=== PATIENT | female | born 1995 | race African-American/Black ===

== ENCOUNTER 2021-03-08 23:22 | Inpatient (IN) | payer MEDICAID ==
[~2021-03-08] VITALS: Ht 157.5 cm; Wt 73.2 kg
[2021-03-08 23:40] VITALS: BP 122/83; PULSE 98; TEMP 98.4
--- NOTE | 2021-03-08 23:40 | NUR ---
2340 G2L1 38.3 WEEK GEST TO LR4 WITH C/O CONTRACTIONS. ADM ASSESSMENT DONE. SVE 4-5/70/-3 VERY POSTERIOR CERVIX. BOW INTACT. EFM WITH 140'S BASELINE AND GOOD VARIABILITY NOTED. COMFORTABLE WITH CONTRACTIONS.
[2021-03-09] VITALS (42 sets, daily range): BP systolic 70–135; BP diastolic 36–85; PULSE 84–126; TEMP 98.1–99.3
--- NOTE | 2021-03-09 00:45 | NUR ---
0045 SVE /-3 WITH BALLOTABLE PRESENTING PART AND VERY POSTERIOR CERVIX. STATES CONTRACTIONS ARE NOT ANY STRONGER. DR SHETTY NOTIFIED AND ORDER TO ADMIT GIVEN.
[2021-03-09] MEDS ORDERED: PRENATAL TABLET PO (00:49)
[2021-03-09] MEDS ORDERED: NATURAL IRON65 MG PO (00:50)
[2021-03-09 01:53] LABS: MEAN CELL VOLUME 81 fl (80.0-100.0); MEAN CORPUSCULAR HGB CONC 31 g/dl (33.0-37.0); MEAN PLATELET VOLUME 9.9 fl (7.4-10.4); PLATELET COUNT 288 K/mm3 (130-400); RED BLOOD COUNT 3.95 M/mm3 (4.10-5.30); REDCELL DISTRIBUTION WIDTH-CV 14.5 % (11.5-14.5)
[2021-03-09 01:55] LABS: HEMATOCRIT 31.8 % (37.0-47.0); HEMOGLOBIN 9.9 g/dl (12.5-16.0); MEAN CORPUSCULAR HEMOGLOBIN 25 pg (27.0-31.0)
--- NOTE | 2021-03-09 02:00 | NUR ---
0200 SITTING ON SIDE OF BED FOR EPIDURAL PLACEMENT. SEE ANESTHESIA RECORDS FOR MORE INFORMATION.
[2021-03-09 02:13] LABS: EOSINOPHIL 2 % (0-4); HYPOCHROMIA 2+; LYMPHOCYTE 24 % (20.0-51.0); MYELOCYTE 1 % (0-0); NEUTROPHILS 68 % (42.0-75.2); PLATELET ESTIMATE NORMAL (NORMAL)
--- NOTE | 2021-03-09 03:00 | NUR ---
0300 ZHAO CATH INSERTED. POSITION CHANGE TO LL. TIRED AND WANTING TO SLEEP
--- NOTE | 2021-03-09 03:30 | NUR ---
0330 B/P 70/37 EPHEDRINE 10MG IV GIVEN WITH B/P INCREASE TO 101/50. PT STATES IS FEELING OUT OF BREATH AND WEAK.
--- NOTE | 2021-03-09 03:38 | NUR ---
0338 B/P 66/49. FEELING WEAK AND BREATHLESS. EPHEDRINE 10MG IV GIVEN. B/P INCREASE TO 107/58
--- NOTE | 2021-03-09 04:15 | NUR ---
2993 - 7590 BABY BECOMES VERY ACTIVE AND UNABLE TO SOCIAL SCIENCE ANALYST CONTINUOUS MONITORING DURING THIS TIME. POSITION CHANGED FROM LEFT LATERAL TO RIGHT LATERAL SEVERAL TIMES. SVE
--- NOTE | 2021-03-09 09:13 | NUR ---
0913- Patient reports increased rectal pressure and urge. SVE 9-10. Patient repositioned high fowlers, wedge left. Dr. Mcdonald updated. See physician notification. 33- SVE C/0. Dr. Mcdonald requested for delivery. See physician notification. Pitocin off. 39- Dr. Mcdonald at bedside for delivery. Patient assisted into footplates and instructed on pushing with ctx. 41- Patient begins to push with ctx with Dr. Mcdonald at bedside. Moves vertex well. 47- Spontaneous vaginal delivery of viable female . To mother's chest where dried and stimulated by nursery RN. Nares and mouth bulb suctioned by Dr. Mcdonald. Cord clamped x2 and cut by father of . Care of assumed by Carina Bojorquez RN. Cord blood and cord gases collected. 49- Spontaneous and intact delivery of placenta. Fundus boggy, but firms with massage. Moderate amout of lochia noted. Dr. Mcdonald at bedside and observes. Right periurethreal and vaginal sidewall laceration repaired by Dr. Mcdonald. Rea care provided, pads changed, and ice pack to perineum. Plan of care and safety precautions reviewed with patient and spouse who verbalize undersanding. See physician dictation, anesthesia record, and nurses notes.
--- NOTE | 2021-03-09 11:30 | NUR ---
Patient verbalizes need to void. Assisted to edge of bed. Denies any lightheadedness or dizziness. Abulatory to bathroom and voids. Rea care provied, clean gown on, and ice pack to perineum. To room 214 via wheel chair. Oriented to room and plan of care.
[2021-03-09] MEDS ORDERED: MOTRIN 800800 MG/TAB PO (20:51)
[2021-03-10 00:30] VITALS: BP 111/62; PULSE 65; TEMP 98.9
[2021-03-10 07:21] VITALS: BP 110/60; PULSE 76; TEMP 98.1
--- NOTE | 2021-03-10 10:22 | NUR ---
Initial visit attempt; Patient resting. Millwright Helper left card of congratulations for the of her daughter and information regarding the availability of spiritual care at our hospital.
== END 2021-03-10 13:30 | disposition home or self-care (01) | DRG 807 ==
LOC: LDRO 23:22 → LDR 03-09 01:09 → OB 03-09 13:06
PROVIDERS: Obstetrics & Gynecology; ADMIT Obstetrics & Gynecology
PROC: 10E0XZZ Delivery of Products of Conception, External Approach (ICD-10-PCS; principal; 2021-03-09)
PROC: 10907ZC Drainage of Amniotic Fluid, Therapeutic from Products of Conception, Via Natural or Artificial Opening (ICD-10-PCS; 2021-03-09)
PROC: 0UQMXZZ Repair Vulva, External Approach (ICD-10-PCS; 2021-03-09)
DX: O48.0 Post-term pregnancy (principal); Z37.0 Single live birth; O77.0 Labor and delivery complicated by meconium in amniotic fluid; Z3A.38 38 weeks gestation of pregnancy; O99.02 Anemia complicating childbirth; O99.824 Streptococcus B carrier state complicating childbirth; O76 Abnormality in fetal heart rate and rhythm complicating labor and delivery; O62.1 Secondary uterine inertia; O71.82 Other specified trauma to perineum and vulva
CPT/HCPCS: J2540; J2590; J2795; J7120